=== PATIENT | female | born 1985 ===

== ENCOUNTER 2016-08-18 18:13 | Emergency (ER) | payer SELFPAY ==
[2016-08-18 18:25] VITALS: RESP 20
--- NOTE | 2016-08-18 20:16 | C.PDOC ---
History Of Present Illness 31 year old female presents to the ED with complaints of left parasternal pain and bilateral lower anterior rib discomfort for the past 3 days. 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 Denies SOB, palpitations, fever, or any other complaints at this time. Time Seen by Provider: 08/18/16 20:08 Chief Complaint (Nursing): Chest Pain History Per: Patient History/Exam Limitations: no limitations Onset/Duration Of Symptoms: Days Current Symptoms Are (Timing): Still Present Severity: Mild Past Medical History Reviewed: Historical Data, Nursing Documentation, Vital Signs Vital Signs: Last Vital Signs Temp 97.9 F 08/18/16 20:31 Pulse 88 08/18/16 20:31 Resp 20 08/18/16 20:31 BP 139/78 08/18/16 20:31 Pulse Ox 99 08/18/16 20:31 - Medical History PMH: No Chronic Diseases Family History: States: Unknown Family Hx - Social History Hx Alcohol Use: No Hx Substance Use: No - Immunization History Hx Tetanus Toxoid Vaccination: No Hx Influenza Vaccination: No Hx Pneumococcal Vaccination: No Review Of Systems Except As Marked, All Systems Reviewed And Found Negative. Constitutional: Negative for: Fever, Chills Cardiovascular: Negative for: Palpitations Respiratory: Positive for: Cough. Negative for: Shortness of Breath, Sputum Gastrointestinal: Negative for: Vomiting Musculoskeletal: Positive for: Other (+Left parasternal pain). Negative for: Back Pain Physical Exam - Physical Exam Appears: Non-toxic, No Acute Distress, Other (+Obses) Skin: Normal Color, Warm, Dry, No Rash Head: Atraumatic, Normacephalic Eye(s): bilateral: Normal Inspection Oral Mucosa: Moist Neck: Supple Chest: Symmetrical, No Deformity, Tenderness (+Tenderness to the left parasternal boarder at T2.) Cardiovascular: Rhythm Regular Respiratory: Normal Breath Sounds, No Accessory Muscle Use, No Rales, No Rhonchi , No Wheezing Extremity: Normal ROM Neurological/Psych: Oriented x3, Normal Speech, Normal Cognition ED Course And Treatment ECG: Interpreted By Me ECG Rhythm: Sinus Rhythm ECG Interpretation: Normal Rate From EC O2 Sat by Pulse Oximetry: 100 (Room air) Pulse Ox Interpretation: Normal Progress Note: Patient treated with Motrin. Medical Decision Making Medical Decision Making: recent mild viral syndrome, lungs clear, digitally and positionally reproducable parasternal discomfort, normal EKG, c/w costochondritis Disposition Doctor Will See Patient In The: Office Counseled Patient/Family Regarding: Studies Performed, Diagnosis - Disposition Referrals: [facility] [Outside] Disposition: HOME/ ROUTINE Disposition Time: 20:16 Condition: GOOD Additional Instructions: ice packs to the affected areas of your chest/ribs 1/2 hour per hour. Nothing hot Motrin 600 mg every 6 hours as needed Pepcid 20 mg @ night as needed to prevent stomach irritation from the motrin No heavy lifting for 1 week (ie, picking up the kids) Follow-up in our Clinic as needed. Instructions: Costochondritis (ED) Print Language: KOREAN - Clinical Impression Clinical Impression: Chest discomfort - Scribe Statement The provider has reviewed the documentation as recorded by the Scribe Clifford Rios. Provider Attestation: All medical record entries made by the Scribe were at my direction and personally dictated by me. I have reviewed the chart and agree that the record accurately reflects my personal performance of the history, physical exam, medical decision making, and the department course for this patient. I have also personally directed, reviewed, and agree with the discharge instructions and disposition.
[2016-08-18 20:34] VITALS: BP 139/78; PULSE 88; TEMP 97.9
[2016-08-18 21:35] VITALS: O2SAT 100
--- NOTE | 2016-09-02 14:41 | CARD ---
APPROVED REPORT EKG Measurement Heart [id number] <Conclusion> Normal sinus rhythm Normal ECG
== END 2016-08-18 20:34 | disposition home or self-care (01) ==
LOC: C.ER 18:13
DX: R07.89 Other chest pain (principal)